=== PATIENT | male | born 1950 | race Caucasian/White ===

== ENCOUNTER → 2021-06-07 | Outpatient (CLI) | payer BC ==
[~2021-06-07] MED LIST: FERROUS SU325 MG/TAB PO; FOLIC ACID 40400 MCG PO; SYNTHROID 0.0.025 MG PO; VITAMIN C500 MG PO; VITAMIN D1000 IU PO; VITAMIN E 400 U4001 PO; ZOCOR 10MG10 MG PO
== END ==
LOC: COL.RAD 09:02
DX: Z01.812 Encounter for preprocedural laboratory examination (principal); R10.9 Unspecified abdominal pain
CPT/HCPCS: Q9967